=== PATIENT | female | born 1940 | race African-American/Black ===

== ENCOUNTER 2016-09-04 11:32 | Inpatient (IN) | payer OTHER ==
[~2016-09-04] VITALS: Ht 160 cm; Wt 68.0 kg
--- NOTE | ~2016-09-04 | EKG ---
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1940 Requested By: Miguelito Coleman Order Number: [id number] MD: Jong Grey Measurements Intervals [place] Rate: 87 P: 51 SC: 171 QRS: 50 QRSD: 89 T: 172 QT: 384 QTc: 462 Interpretive Statements Sinus rhythm Atrial premature complex Probable left atrial enlargement LVH with secondary repolarization abnormality vs lateral ischemia Baseline wander in lead(s) I,aVL Compared to ECG 09/09/2012 15:50:19 Atrial premature complex(es) now present Early repolarization now present T-wave abnormality no longer present Electronically Signed On 09-04-2016 14:13:59 CDT by Jong Grey [email or web address] <ELECTRONICALLY SIGNED> By: Jong Grey MD 09/04/16 1413 1204 1204 Jong Grey MD /EPI
--- NOTE | ~2016-09-04 | 2DMMODE ---
[facility] [address] [place] [address] 2 D/M-MODE ECHOCARDIOGRAM Name: YASMEEN REED Room #: 463-P [facility] IN .R.#: [id number] Admission: 09/04/16 Attend Phys: Freddie Germain Discharge: Date of : 36 Date of Service: 09/04/16 1548 Report #: [id number] THIS REPORT FOR: //name// APPROVED REPORT Study performed: 09/04/2016 14:38:46 EXAM: Comprehensive 2D, Doppler, and color-flow Echocardiogram Patient Location: ER Room #: 12 Status: routine Other Information Study Quality: Adequate Indications Hypertension, elevated troponin, TIA Echo Enhancing Agent Indication: Rule out Shunt Agent(s) / Amount(s) Used: Agitated Saline 6 cc 2D Dimensions RVDd: 38.56 mm LVEF(%): 60.72 (>50%) IVSd: 12.78 (7-11mm) LVOT Diam: 21.45 (18-24mm) LVDd: 36.94 mm PWd: 13.03 (7-11mm) Ascending Ao: 36.30 (22-36mm) LVDs: 25.19 (25-40mm) Aortic Root: 38.25 mm Hernandez's LVEF: 60.72 % Volumes Left Atrial Volume (Systole) Single Plane 4CH: 34.96 mL Single Plane 2CH: 37.24 mL LA ESV Index: 22.00 mL/m2 Aortic Valve AoV Peak Prince.: 1.40 m/s AO Peak Gr.: 7.85 mmHg LVOT Max P.77 mmHg LVOT Max V: 0.97 m/s [facility] Vmax: 2.50 cm2 Mitral Valve E/A Ratio: 0.5 MV Decel. Time: 258.91 ms [facility] [employer] [place] [address] 2 D/M-MODE ECHOCARDIOGRAM Name: YASMEEN REED Room #: 463-P [facility] IN M.R.#: [id number] Admission: 09/04/16 Attend Phys: Freddie Germain Discharge: Date of : 36 Date of Service: 09/04/16 1548 Report #: [id number] E Max Prince.: 0.48 m/s MV A Prince.: 0.92 m/s MV PHT: 75.08 ms IVRT: 138.41 ms Pulmonary Valve PV Peak Prince.: 0.89 m/s PV Peak Gr.: 3.14 mmHg Pulmonary Vein P Vein S: 0.40 m/s P Vein A: 0.36 m/s P Vein D: 0.34 m/s P Vein A Dur.: 101.5 msec P Vein S/D Ratio: 1.18 Tricuspid Valve TR Peak Prince.: 2.17 m/s RAP Estimate: 5.00 mmHg TR Peak Gr.: 18.79 mmHg PA Pressure: 24.00 mmHg Left Ventricle The left ventricle is normal size. There is normal LV segmental wall motion. Moderate concentric left ventricular hypertrophy. Left ventricular systolic function is normal. LVEF is 65%. Mild diastolic dysfunction is present (impaired relaxation pattern). Right Ventricle The right ventricle is normal size. The right ventricular systolic function is normal. Atria The left atrium size is normal. Injection of bubbles documented no interatrial shunt. The right atrium size is normal. Aortic Valve The aortic valve is normal in structure. Mild aortic regurgitation. There is no aortic valvular stenosis. Mitral Valve The mitral valve is normal in structure. Moderate mitral regurgitation. Eccentric jet noted. No evidence of mitral valve stenosis. Tricuspid Valve The tricuspid valve is normal in structure. There is trace tricuspid regurgitation. The right atrial pressure is estimated at 5 mmHg. Estimated PAP of 24mmHg. [address] [address] 2 D/M-MODE ECHOCARDIOGRAM Name: YASMEEN REED Room #: 463-[facility] IN .R.#: [id number] Admission: 09/04/16 Attend Phys: Freddie Germain Discharge: Date of : 36 Date of Service: 09/04/16 1548 Report #: [id number] Pulmonic Valve The pulmonary valve is normal in structure. Trace pulmonic regurgitation. Great Vessels Aortic root is mildly dilated. The ascending aorta is normal in size. IVC is normal in size and collapses >50% with inspiration. Pericardium There is no pericardial effusion. <Conclusion> The left ventricle is normal size. Moderate concentric left ventricular hypertrophy. Left ventricular systolic function is normal. Mild diastolic dysfunction is present (impaired relaxation pattern). The right ventricle is normal size. The left atrium size is normal. Injection of bubbles documented no interatrial shunt. Mild aortic regurgitation. Moderate mitral regurgitation. Eccentric jet noted. There is trace tricuspid regurgitation. The right atrial pressure is estimated at 5 mmHg. Estimated PAP of 24mmHg. There is no pericardial effusion. <ELECTRONICALLY SIGNED> By: Kamar Dorado MD 09/04/16 1548 1548 1548 Kamar Dorado MD /INF
[~2016-09-04 11:32] MED LIST: COMBIVENT RESPIM4 GM INH; HYDROCHLOROTH12.5 MG PO; K-DUR 20 MEQ T20 MEQ PO; NOHOMEMEDICATIONS; TYLENOL ALLERG1 EA11 PO
[2016-09-04 11:33] VITALS: BP 172/120
[2016-09-04 12:34] LABS: ABSOLUTE NEUTROPHILS 3.7 thou/uL (1.4-8.2); EOSINOPHILS 0.8 % (0.0-3.0); HEMATOCRIT 51.8 % (37.0-47.0); HEMOGLOBIN 16.9 gm/dL (12.0-15.0); LYMPHOCYTES 42.6 % (24.0-44.0); MCH 26.9 pg (26.0-34.0); MCHC 32.7 g/dL (28.0-37.0); MCV 82.2 fL (80.0-100.0); PLATELET COUNT 164 thou/uL (150-400); POLYS 46.6 % (36.0-66.0); RDW 15.6 % (10.5-14.5)
[2016-09-04 12:41] LABS: CALCIUM 9.6 mg/dL (8.5-10.1); CREATININE 0.9 mg/dL (0.6-1.0); POTASSIUM 3.8 mmol/L (3.5-5.1)
[2016-09-04 12:44] LABS: MANUAL DIFF NO
[2016-09-04 12:46] LABS: ALBUMIN 3.6 g/dL (3.4-5.0); TOTAL BILIRUBIN 0.6 mg/dL (<0.1-1.0); TOTAL PROTEIN 7.6 g/dL (6.4-8.2); TROPONIN-I 0.13 ng/mL (<0.04-0.07)
[2016-09-04 14:22] VITALS: BP 168/123; BP 182/112
[2016-09-04 14:52] LABS: CHOLESTEROL 181 mg/dL (<200); HDL CHOLESTEROL 47 mg/dL (>40); LDL CHOLESTEROL 123 mg/dL (<100); TC:HDL 3.9 Ratio (Not establshd); TRIGLYCERIDE 55 mg/dL (<150); VLDL 11 mg/dL (<40)
[2016-09-04 15:24] VITALS: BP 156/117
[2016-09-04 15:47] VITALS: BP 159/107
[2016-09-04 19:26] VITALS: BP 154/103
[2016-09-04 23:04] VITALS: BP 149/105
[2016-09-05 07:45] VITALS: BP 149/110
[2016-09-05 11:56] VITALS: BP 123/70
[2016-09-05 15:46] VITALS: BP 118/73
[2016-09-05 20:01] VITALS: BP 115/81
[2016-09-05 23:40] VITALS: BP 144/97
[2016-09-06 03:32] VITALS: BP 139/98
[2016-09-06 05:43] LABS: CALCIUM 9.5 mg/dL (8.5-10.1); CREATININE 0.9 mg/dL (0.6-1.0); POTASSIUM 3.8 mmol/L (3.5-5.1)
[2016-09-06 08:06] VITALS: BP 138/105
[2016-09-06 12:13] VITALS: BP 154/83
[2016-09-06] MEDS ORDERED: HYDROCHLOROTH12.5 M1 PO (13:20)
[2016-09-06] MEDS ORDERED: CARVEDILOL12.5 MG PO (13:20)
[2016-09-06] MEDS ORDERED: ASPIR 8181 MG PO (13:20)
[2016-09-06] MEDS ORDERED: COZAAR100 MG PO (13:20)
[2016-09-06 13:25] VITALS: BP 154/83
== END 2016-09-06 14:04 | disposition home or self-care (01) | DRG 305 ==
LOC: ER 11:32 → 4W 13:00 → EROBS 13:00 → 4W 15:29
PROVIDERS: Internal Medicine Cardiovascular Disease; Nurse Practitioner Gerontology; Physician Assistant
DX: I16.0 Hypertensive urgency (principal); E78.5 Hyperlipidemia, unspecified; F17.210 Nicotine dependence, cigarettes, uncomplicated; Z86.73 Personal history of transient ischemic attack (TIA), and cerebral infarction without residual deficits; Z90.710 Acquired absence of both cervix and uterus; Z71.6 Tobacco abuse counseling; Z91.14 Patient's other noncompliance with medication regimen
CPT/HCPCS: 10045

== ENCOUNTER → 2017-05-14 | Outpatient (CLI) | payer OTHER ==
[~2017-05-14] MED LIST changes: +ASPIR 8181 MG PO; +CARVEDILOL12.5 MG PO; +COZAAR100 MG PO; +HYDROCHLOROTH12.5 M1 PO
--- NOTE | ~2017-05-14 | 2DMMODE ---
[facility] [address] [place] [address] 2 D/M-MODE ECHOCARDIOGRAM Name: DEREKRADHARYAN [facility]: [id number] Admission: 05/14/17 Attend Phys: Kamar Dorado MD Discharge: Date of : 36 Date of Service: 05/14/17 1017 Report #: [id number] THIS REPORT FOR: //name// APPROVED REPORT Study performed: 05/14/2017 09:24:38 EXAM: Comprehensive 2D, Doppler, and color-flow Echocardiogram Patient Location: Out-Patient Room #: Echo lab Status: routine BSA: 1.73 HR: 80 bpm BP: 144/92 mmHg Other Information Study Quality: Adequate Indications Hypertension/HDD 2D Dimensions RVDd: 31.78 mm LVEF(%): 65.25 (>50%) IVSd: 13.74 (7-11mm) LVOT Diam: 19.57 (18-24mm) LVDd: 37.16 mm PWd: 13.74 (7-11mm) Ascending Ao: 37.42 (22-36mm) LVDs: 24.12 (25-40mm) Aortic Root: 32.49 mm IVC: 14.00 mm Hernandez's LVEF: 65.25 % Volumes Left Atrial Volume (Systole) Single Plane 4CH: 34.48 mL Single Plane 2CH: 44.27 mL LA ESV Index: 24.00 mL/m2 Aortic Valve AoV Peak Prince.: 1.50 m/s AO Peak Gr.: 8.95 mmHg LVOT Max P.61 mmHg LVOT Max V: 1.07 m/s [facility] Vmax: 2.16 cm2 Mitral Valve E/A Ratio: 0.6 MV Decel. Time: 196.86 ms MV E Max Prince.: 0.49 m/s [facility] [place] [employer] [place] [address] 2 D/M-MODE ECHOCARDIOGRAM Name: YASMEEN REED Room #: REG Shantanu#: [id number] Admission: 05/14/17 Attend Phys: Kamar Dorado MD Discharge: Date of : 38 Date of Service: 05/14/17 1017 Report #: [id number] MV A Prince.: 0.76 m/s MV PHT: 57.09 ms IVRT: 147.64 ms Pulmonary Valve PV Peak Prince.: 0.72 m/s PV Peak Gr.: 2.09 mmHg Pulmonary Vein P Vein S: 0.63 m/s P Vein A: 0.36 m/s P Vein D: 0.30 m/s P Vein A Dur.: 124.6 msec P Vein S/D Ratio: 2.10 Tricuspid Valve TR Peak Prince.: 3.09 m/s TR Peak Gr.: 38.25 mmHg PA Pressure: 43.00 mmHg Left Ventricle The left ventricle is normal size. Moderate concentric left ventricular hypertrophy. The left ventricular systolic function is normal. The left ventricular ejection fraction is within the normal range. LVEF is >70%. Grade I - abnormal relaxation pattern. Right Ventricle The right ventricle is normal size. The right ventricular systolic function is normal. Atria The left atrium size is normal. The right atrium size is normal. Aortic Valve The aortic valve is normal in structure. Mild aortic regurgitation. There is no aortic valvular stenosis. Mitral Valve The mitral valve is normal in structure. Trace mitral regurgitation. No evidence of mitral valve stenosis. Tricuspid Valve The tricuspid valve is normal in structure. There is trace tricuspid regurgitation. Estimated PAP 43 mmHg. There is moderate pulmonary hypertension. Pulmonic Valve The pulmonary valve is normal in structure. There is no pulmonic [address] [address] 2 D/M-MODE ECHOCARDIOGRAM Name: YASMEEN REED Room #: REG [facility]#: [id number] Admission: 05/14/17 Attend Phys: Kamar Dorado MD Discharge: Date of : 36 Date of Service: 05/14/17 1017 Report #: [id number] valvular regurgitation. Great Vessels The aortic root is normal in size. IVC is normal in size and collapses >50% with inspiration. Pericardium There is no pericardial effusion. <Conclusion> The left ventricle is normal size. Moderate concentric left ventricular hypertrophy. The left ventricular systolic function is normal. Grade I - abnormal relaxation pattern. The right ventricle is normal size. The left atrium size is normal. Mild aortic regurgitation. Trace mitral regurgitation. There is trace tricuspid regurgitation. Estimated PAP 43 mmHg. There is moderate pulmonary hypertension. <ELECTRONICALLY SIGNED> By: Kamar Dorado MD 05/14/17 1017 1017 1017 Kamar Dorado MD /INF
== END ==
LOC: CV 09:19
DX: I35.1 Nonrheumatic aortic (valve) insufficiency (principal); I47.1 Supraventricular tachycardia

== ENCOUNTER → 2017-05-31 | Outpatient (CLI) | payer OTHER | LOC: RAD 10:44 | DX: I51.7 Cardiomegaly (principal); I10 Essential (primary) hypertension ==

== ENCOUNTER 2017-06-16 02:04 | Inpatient (IN) | payer OTHER ==
[~2017-06-16] VITALS: Ht 160 cm; Wt 73.6 kg
[2017-06-16] VITALS (81 sets, daily range): BP systolic 71–165; BP diastolic 52–125
--- NOTE | ~2017-06-16 | HC ---
[facility] [place] [address] CONSULTATION Name: YASMEEN REED Room #: 245-P ADM IN M.R.#: [id number] Admission: 06/16/17 Attend Phys: Terry Latif MD Discharge: Date of : 38 Report #: [id number] THIS REPORT FOR: //name// CC: Terry Staples REFERRING PHYSICIAN: Dr. Latif. REASON FOR REFERRAL: Cardiac arrest. HISTORY OF PRESENT ILLNESS: The patient is a 77-year-old -Italian female who was brought to the Emergency Room following a cardiac arrest. Since admission, she has been placed on hypothermia protocol. Consultation was called in around 4:30 in the morning. According to the family and records, she was well on the day prior to admission. Last evening, she was awokened complaining of dyspnea. She vomited and then slumped over. Downtime was said to be about 5 minutes when EMS arrived. Spouse tried to provide CPR. When the EMS arrived, the patient was found to be in asystole. CPR was given for about 30 minutes with 5 rounds of epinephrine with subsequent return of pulse. I do not find what type of rhythm was noted. The patient does have a history of hypertension, TIA in the past, but no known history of heart disease. Her echocardiogram in the past has shown a normal ejection fraction, moderate mitral regurgitation. According to the patient's , the patient had a negative stress test in the past. Currently, she is on hypothermia protocol, she is sedated. PAST MEDICAL HISTORY: Notable for COPD, she is on 3 liters of O2 at home, hypertension, history of TIA in 2003, hyperlipidemia. PAST SURGICAL HISTORY: Include hysterectomy. ALLERGIES: None noted. MEDICATIONS: Include Coreg, Cozaar, aspirin, hydrochlorothiazide. Bronchodilators were not listed. FAMILY HISTORY: Unknown. SOCIAL HISTORY: The patient has smoked in the past, but quit some time ago. There is no history of alcohol use. She is . REVIEW OF SYSTEMS: Deferred as the patient is sedated. PHYSICAL EXAMINATION: [facility] [address] [place] [address] CONSULTATION Name: YASMEEN REED Room #: 245-P [facility] IN M.R.#: [id number] Admission: 06/16/17 Attend Phys: Terry Latif MD Discharge: Date of : 38 Report #: [id number] GENERAL: She is sedated, currently on hypothermia protocol. VITAL SIGNS: Currently, pulse is 90, sinus rhythm, respiratory rate is 25, blood pressure 110/84 mmHg on dopamine drip. Saturation 100%. HEENT: Normocephalic, atraumatic. NECK: Supple, without any lymphadenopathy or thyromegaly. CHEST: Breath sounds clear bilaterally. CARDIOVASCULAR: Heart sounds are distant. No obvious murmurs or gallop. Pulses are 2+/4+ bilaterally. ABDOMEN: Soft, no masses felt. GENITOURINARY: Deferred. RECTAL: Deferred. EXTREMITIES: There is no edema, cyanosis or clubbing. NEUROLOGIC: Deferred as the patient is sedated. According to nursing, she did have some decerebrate posturing when she arrived in the ICU. LABORATORY DATA: Chest x-ray is clear with cardiomegaly, ET tube is approximately 2.5 cm over the connor, no infiltrates seen. Sodium 144, potassium 5.5, chloride is 107, CO2 29, BUN is 37, creatinine is 2.0. WBC is 14,400, hemoglobin is 15.8, platelets mildly decreased. No evidence of bandemia. Arterial blood gas revealed pH 7.08, pCO2 87, pO2 460 on FiO2 100%. Repeat arterial blood gas revealed pH 7.37, pCO2 is 36, pO2 300, FiO2 100%. IMPRESSION: 1. Out of hospital cardiac arrest in this 77-year-old -Italian female. She was found to be asystolic. The patient was down more than 15 minutes. The patient has decerebrate posturing. Etiology suspect underlying cardiac disease. Agree with hypothermia protocol. 2. Probable severe anoxic brain injury. 3. Acute hypercapnic hypoxic respiratory failure due to above. Gas exchange has improved. 4. Renal insufficiency. Last creatinine in the hospital was 2017 was normal, presumed acute kidney injury due to cardiac arrest, leading to acute tubular necrosis. 5. History of hypertension. 6. History of medical noncompliance. 7. Chronic obstructive pulmonary disease by history, oxygen dependent, history of tobacco use. RECOMMENDATION: We will continue mechanical ventilation, wean O2 for saturation 90%. We will add bronchodilators. I do not think she needs corticosteroids at this time. We will need to monitor renal function closely given acute kidney injury. DVT and gastrointestinal prophylaxis will be initiated. We will need to assess neurologic status over the next 72 hours or so given probable severe anoxic brain injury. [facility] [address] [place] [address] CONSULTATION Name: YASMEEN REED Room #: 245-P ADM IN M.R.#: [id number] Admission: 06/16/17 Attend Phys: Terry Latif MD Discharge: Date of : 38 Report #: [id number] Thank you for this consultation. <ELECTRONICALLY SIGNED> By: Maulik Farah MD 06/16/17 1431 0852 1204 Maulik Farah MD /nt
--- NOTE | ~2017-06-16 | EKG ---
[place] [address] [place] [address] ELECTROCARDIOGRAM REPORT Name: REEDYASMEEN Room #: 245-P ADM IN M.R.#: [id number] Admission: 06/16/17 Attend Phys: Terry Latif MD Discharge: Date of : 38 Report #: [id number] THIS REPORT FOR: //name// [facility] ED Test Date: 2017-06-16 Test Time: 02:07:46 Pat Name: YASMEEN REED Department: Room: [facility] 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 : 1940 Requested By: Maulik Farah Order Number: [id number] MD: Jack Freire Measurements Intervals [place] Rate: 79 P: 10 MD: 180 QRS: 86 QRSD: 156 T: 247 QT: 412 QTc: 473 Interpretive Statements Sinus rhythm Right bundle branch block T-wave abnormality consider ischemia Compared to ECG 09/04/2016 12:04:34 Right bundle-branch block now present Electronically Signed On 06-16-2017 12:19:53 CDT by Jack Freire [email or web address] <ELECTRONICALLY SIGNED> By: Jack Freire MD, [facility] 06/16/17 1219 0207 Jack Freire MD, [facility] /EPI
--- NOTE | ~2017-06-16 | EKG ---
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1940 Requested By: Kaylee Caputo Order Number: [id number] MD: Jack Freire Measurements Intervals [place] Rate: 129 P: 130 LA: 284 QRS: 81 QRSD: 96 T: -74 QT: 304 QTc: 446 Interpretive Statements Sinus tachycardia Nonspecific ST and T wave abnormality LVH Compared to ECG 06/16/2017 02:27:36 Right bundle-branch block is no longer present nonspecific change in the ST and T-wave segments Electronically Signed On 06-17-2017 12:06:00 CDT by Jack Freire [email or web address] <ELECTRONICALLY SIGNED> By: Jack Freire MD, [facility] 06/17/17 1206 1241 1241 Jack Freire MD, [facility] /EPI
--- NOTE | ~2017-06-16 | DEA ---
[facility] [place] [address] SUMMARY Name: YASMEEN REED Room #: 459-P [facility] IN M.R.#: [id number] Admission: 06/16/17 Attend Phys: Dru Foy MD Discharge: 06/23/17 Date of : 38 Report #: [id number] THIS REPORT FOR: //name// CC: Terry Foy DATE OF SERVICE: 06/23/2017 SUMMARY Date and time of is 06/23/2017 at 9:45 a.m. ADMITTING DIAGNOSES: 1. Status post cardiac arrest with anoxic brain injury status post asystole, elevated troponin. 2. Acute respiratory failure. 3. Acute kidney injury. 4. Leukocytosis. HOSPITAL COURSE: The patient is an unfortunate 77-year-old female who presented to ER via EMS post-code. According to her spouse, she was acting final day, even had gone shopping. She woke up and was short of breath, felt like she was going to vomit and just "slumped over." She was down about 5 minutes prior to EMS arrival. The patient was in asystole with no CPR upon EMS arrival. The EMS performed chest compressions for about 15 minutes with 5 rounds of epinephrine prior to obtaining pulse. The patient was subsequently intubated and admitted to the hospital. MRI was obtained as well as EEG, which both indicated diffuse anoxic brain injury with abnormal signal within the bilateral basal ganglia as well as the bilateral cerebral hemispheres with area of high signal intensity. This was discussed at length with the family and very poor prognosis and they opted for extubation with palliative care only. The patient peacefully on the above date and time. Body was released with the family to go to the custodial. By: 1214 1856 Elie Veloz, DO /nt
--- NOTE | ~2017-06-16 | 2DMMODE ---
[address] [address] 2 D/M-MODE ECHOCARDIOGRAM Name: YASMEEN REED Room #: 245-P ADM IN M.R.#: [id number] Admission: 06/16/17 Attend Phys: Terry Latif, Discharge: Date of : 38 Date of Service: 06/16/17 1159 Report #: [id number] THIS REPORT FOR: //name// APPROVED REPORT Study performed: 06/16/2017 10:18:57 EXAM: Comprehensive 2D, Doppler, and color-flow Echocardiogram Patient Location: ICU Room #: [facility] Status: on-call BSA: 1.74 HR: 80 bpm BP: 127/95 mmHg Other Information Study Quality: Technically Limited Indications S^P Arrest Left Ventricle The left ventricle is normal size. There is normal left ventricular wall thickness. The left ventricular systolic function is normal. The left ventricular ejection fraction is within the normal range. LVEF is 55-60%. Right Ventricle The right ventricle is normal size. The right ventricular systolic function is normal. Atria The left atrium size is normal. The right atrium size is normal. Aortic Valve Aortic valve is grossly normal in structure. Mitral Valve The mitral valve is normal in structure. Tricuspid Valve Tricuspid valve is not well visualized. Pulmonic Valve [address] [place] [address] 2 D/M-MODE ECHOCARDIOGRAM Name: YASMEEN REED Room #: 245-P ADM IN M.R.#: [id number] Admission: 06/16/17 Attend Phys: Terry Latif, Discharge: Date of : 36 Date of Service: 06/16/17 1159 Report #: [id number] Pulmonic valve is not well visualized. Great Vessels Aortic root is not well visualized. IVC is not visualized. Pericardium There is no pericardial effusion. <Conclusion> Limited study The left ventricular systolic function is normal. LVEF is 55-60%. Aortic valve is grossly normal in structure. The mitral valve is normal in structure. There is no pericardial effusion. <ELECTRONICALLY SIGNED> By: Jack Freire MD, FACC 06/16/17 1159 1159 58 Jack Freire MD, FACC /INF
--- NOTE | ~2017-06-16 | HC ---
[facility] [place] [address] CONSULTATION Name: YASMEEN REED Room #: 245-P [facility] IN M.R.#: [id number] Admission: 06/16/17 Attend Phys: Dru Foy MD Discharge: Date of : 38 Report #: [id number] THIS REPORT FOR: //name// CC: Terry Staples DATE OF SERVICE: 06/16/2017 HISTORY OF PRESENT ILLNESS: The patient is a 77-year-old -[place]wegian woman with history of hypertension, dyslipidemia and remote TIA. She was seen by Dr. Dorado in 08/2016 with a tiny troponin elevation in the setting of hypertension. Medications were adjusted at that time. She now had a witnessed arrest. I have been asked to see her in this regard. Apparently, she was fine throughout the day yesterday and had gone shopping. She developed an episode of shortness of breath, nausea and thought that she was going to vomit. She then slumped over. Family called paramedics, who arrived, what was described, in less than 5 minutes. CPR was started; the initial rhythm was asystole. At least 15 minutes of CPR was given as well as 5 rounds of epinephrine. There was also a report of a possible seizure and transferred from her home to the Emergency Department. She is currently comatose, intubated and on hypothermia protocol. A very recent echocardiogram, which I have reviewed in 04/2017, demonstrated moderate LVH and normal left ventricular systolic function. Mild aortic insufficiency was noted with the pulmonary artery pressure of 43 mmHg. ALLERGIES: There are no known drug allergies. MEDICATIONS: Include carvedilol 12.5 mg twice daily, losartan 100 mg daily, aspirin and hydrochlorothiazide 12.5 mg daily. PAST MEDICAL HISTORY: Notable for hypertension, remote TIA, dyslipidemia, hysterectomy and COPD. SOCIAL HISTORY: She is a ckh-jfmi-vqt-day smoker. FAMILY HISTORY: Not obtainable. REVIEW OF SYSTEMS: Not obtainable. PHYSICAL EXAMINATION: GENERAL: Exam reveals a comatose woman, intubated and ventilated. She is cold to the touch. VITAL SIGNS: Blood pressure is 115/84, heart rate of 90 and regular and temperature is 32 degrees. Five feet 3 inches tall, 161 pounds. HEENT: There are neither xanthelasma, subcutaneous xanthomata, oral mucosal or digital cyanosis or kyphoscoliosis present. [facility] [address] [place] [address] CONSULTATION Name: YASMEEN REED Room #: 245-P [facility] IN .R.#: [id number] Admission: 06/16/17 Attend Phys: Dru Foy MD Discharge: Date of : 38 Report #: [id number] CHEST: Clear to auscultation and percussion. CARDIAC EXAMINATION: Reveals a regular rate and rhythm, with normal S1, S2. There is a soft systolic murmur at the base. ABDOMEN: Soft and nontender. EXTREMITIES: Without cyanosis, clubbing or edema. Radial pulses are 2+. NEUROLOGIC: She is in a drug-induced coma. LABORATORY DATA: Sodium 144, potassium 5.5 and creatinine 2.0. Creatinine last August was 0.9. Troponin 0.15. ProBNP of 485. White count 14,000, hemoglobin 15, hematocrit 52 and platelet count 128,000. Chest x-ray, cardiomegaly, normal vascularity. She did have a stress study in 08/2016, which was negative for ischemia. IMPRESSION: 1. Asystolic arrest with prolonged CPR. 2. Acute respiratory failure, possible aspiration. 3. Hypertension. 4. Acute kidney injury with hyperkalemia. 5. Possible seizure. 6. Remote transient ischemic attack. 7. History of pharmacologic noncompliance. 8. Presumed chronic obstructive pulmonary disease; tobacco dependency. RECOMMENDATIONS: 1. Hypothermia protocol, which has been initiated. 2. Abbreviated echocardiogram to reassess left ventricular systolic function. A small troponin elevation in this setting would be expected following prolonged CPR. Her EKG is unchanged and demonstrates no acute ST or T-wave changes. I do not suspect a primary myocardial ischemic event precipitating her arrest. Further thoughts will be forthcoming based on this evaluation. Thank you for asking me to participate in this woman's care. Critical care time from 07:05 to 08:02. <ELECTRONICALLY SIGNED> By: Jack Freire MD, FACC 06/20/17 0822 0759 1024 Jack Freire MD, FACC /nt
--- NOTE | ~2017-06-16 | HC ---
[facility] [place] [address] CONSULTATION Name: YASMEEN REED Room #: [facility] IN M.R.#: [id number] Admission: 06/16/17 Attend Phys: Dru Foy MD Discharge: Date of : 36 Report #: [id number] THIS REPORT FOR: //name// CC: Terry Foy DATE OF SERVICE: 06/19/2017 CHIEF COMPLAINT: Likely anoxic brain injury. HISTORY OF PRESENT ILLNESS: The patient is a 77-year-old female who unfortunately suffered asystole cardiac arrest outside the hospital setting. She had approximately 5 minutes without CPR, followed by 15 minutes with CPR prior to return to spontaneous circulation. The patient subsequently was intubated and has been on mechanical ventilation. Unfortunately, found to have likely anoxic brain injury with multiple EEGs performed. I do not have the results of today's EEG, but I do have results of most recent MRI showing diffuse edema likely consistent with a brain injury. The patient additionally has had acute renal failure and leukocytosis, although these have somewhat improved and the patient has seen Neurology as well and had evaluation again waiting on today's EEG. The patient has had no purposeful movement. She does have left corneal response and does over breathe ventilator, but otherwise again no purposeful movements at this time. PAST MEDICAL HISTORY: Hypertension, TIA, hyperlipidemia, and COPD, on chronic 3 liters nasal cannula. SURGICAL HISTORY: Hysterectomy. MEDICATIONS: Coreg, losartan, aspirin, hydrochlorothiazide. SOCIAL HISTORY: A son, Jabari. She does have significant other. She did smoke previously. ALLERGIES: No known drug allergies. CODE STATUS: Full code at this time. REVIEW OF SYSTEMS: Unable to obtain at this time due to medical condition. PHYSICAL EXAMINATION: VITAL SIGNS: Temperature 36.9, pulse 110, respirations 24, blood pressure 139/104, 100% on ventilation. GENERAL: The patient is not alert, unable to assess orientation. Poor attention level. [facility] [address] [place] [address] CONSULTATION Name: YASMEEN REED Room #: [address] [place] [address] [place] .R.#: [id number] Admission: 06/16/17 Attend Phys: Dru Foy MD Discharge: Date of : 36 Report #: [id number] HEENT: Nonpurposeful eye movement noted. CARDIOVASCULAR: Regular rate and rhythm, but tachycardic. RESPIRATORY: Mechanical lung sounds auscultated. ABDOMEN: Slight distention. Diminished bowel sounds noted. LABORATORY DATA: These included white blood cell 15.7, hemoglobin 14.3, platelets 127. Creatinine 0.9. ASSESSMENT AND PLAN: 1. Likely anoxic brain injury. Attempted to contact jono palmer. Left message to contact me with regards to possible family meeting. We will attempt to contact in the morning as well. 2. Acute hypoxic respiratory failure, again on ventilation. Appreciate pulmonary recommendations. I do agree the patient is a candidate for palliative withdrawal of ventilator and possibility of further palliative care at that time. 3. Status post cardiac arrest. Again results as above. Concern overall that patient has diffuse brain injury and is likely to have poor prognosis overall. We will further attempt to contact family. Thank you very much for the consultation. We will continue to follow. By: [id number] Jhoan Adame DO /nt
--- NOTE | ~2017-06-16 | EKG ---
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 [employer] Manager: [id number] : 1940 Requested By: Kaylee Caputo Order Number: [id number] MD: Jack Freire Measurements Intervals Dorothy Rate: 80 P: 83 [place]: 188 QRS: 83 QRSD: 147 T: -73 QT: 443 QTc: 512 Interpretive Statements Sinus rhythm Probable left atrial enlargement Right bundle branch block Anteroseptal infarct, age indeterminate T-wave abnormality, consider lateral ischemia Compared to ECG 09/04/2016 12:04:34 No significant change was found Electronically Signed On 06-16-2017 12:20:34 CDT by Jack Freire [email or web address] <ELECTRONICALLY SIGNED> By: Jack Freire MD, [facility] 06/16/17 1220 6 Jack Freire MD, [facility] /EPI
[2017-06-16 02:45] LABS: ABSOLUTE NEUTROPHILS 5.6 thou/uL (1.4-8.2); BASOPHILS 0.6 % (0.0-2.0); EOSINOPHILS 1.2 % (0.0-3.0); HEMATOCRIT 52.1 % (37.0-47.0); HEMOGLOBIN 15.8 gm/dL (12.0-15.0); LYMPHOCYTES 52.5 % (24.0-44.0); MCHC 30.4 g/dL (28.0-37.0); MCV 85.6 fL (80.0-100.0); MONOCYTES 6.4 % (1.0-8.0); PLATELET COUNT 128 thou/uL (150-400); POLYS 39.3 % (36.0-66.0); RBC 6.09 mil/uL (4.20-5.00); RDW 17.2 % (10.5-14.5); WBC 14.4 thou/uL (4.0-11.0)
[2017-06-16 02:53] LABS: CALCIUM 9.1 mg/dL (8.5-10.1); POTASSIUM 5.5 mmol/L (3.5-5.1)
[2017-06-16 02:55] LABS: APTT 32.1 Seconds (24.5-32.8); INR 1.1; PROTIME 10.9 Seconds (9.3-11.4)
[2017-06-16 03:02] LABS: TROPONIN-I 0.15 ng/mL (<0.06)
[2017-06-16 03:02] LABS: URINE BILIRUBIN NEGATIVE (Negative); URINE BLOOD 2+ (Negative); URINE CLARITY CLEAR; URINE COLOR YELLOW; URINE GLUCOSE-RANDOM* TRACE (Negative); URINE KETONES NEGATIVE (Negative); URINE LEUKOCYTES NEGATIVE (Negative); URINE NITRITE NEGATIVE (Negative); URINE PROTEIN (DIPSTICK) 2+ (Negative); URINE SPECIFIC GRAVITY >= 1.030 (1.005-1.035); URINE UROBILINOGEN 0.2 E.U./dl (0.2-1.0)
[2017-06-16 03:24] LABS: BE(vivo) -6.7 mmol/L (-2 to +3); HCO3 25.7 mmol/L (22.0-26.0); sO2 99.7 % (92.0-98.0)
[2017-06-16 03:25] LABS: PCO2 87.2 mmHg (35.0-45.0); pH 7.088 (7.360-7.450)
[2017-06-16 03:26] LABS: HYALINE CASTS 0-3 Few /LPF (None Seen); SQUAMOUS 4-10 Moderate /LPF (0-3)
[2017-06-16 03:27] LABS: AMORPHOUS PHOSPHATES Few /LPF (None Seen); BACTERIA 1-9 Few /HPF (None Seen); CRYSTALS None Seen /LPF (None Seen); URINE WBC 6-15 Few /HPF (0-5)
[2017-06-16 05:30] LABS: BE(vivo) -3.7 mmol/L (-2 to +3); HCO3 20.8 mmol/L (22.0-26.0); PCO2 36.3 mmHg (35.0-45.0); pH 7.375 (7.360-7.450); sO2 99.7 % (92.0-98.0)
[2017-06-16 08:59] LABS: WBC 19.8 thou/uL (4.0-11.0)
[2017-06-16 09:01] LABS: ABSOLUTE NEUTROPHILS 18.2 thou/uL (1.4-8.2); BASOPHILS 0.3 % (0.0-2.0); EOSINOPHILS 0.1 % (0.0-3.0); HEMOGLOBIN 17.3 gm/dL (12.0-15.0); LYMPHOCYTES 2.7 % (24.0-44.0); MCH 26.7 pg (26.0-34.0); MCHC 32.7 g/dL (28.0-37.0); MCV 81.7 fL (80.0-100.0); MONOCYTES 5.2 % (1.0-8.0); PLATELET COUNT 128 thou/uL (150-400); POLYS 91.7 % (36.0-66.0); RBC 6.48 mil/uL (4.20-5.00); RDW 16.5 % (10.5-14.5)
[2017-06-16 09:17] LABS: CALCIUM 8.9 mg/dL (8.5-10.1); CREATININE 1.3 mg/dL (0.6-1.0); TROPONIN-I 0.22 ng/mL (<0.06)
[2017-06-16 09:19] LABS: POTASSIUM 3.7 mmol/L (3.5-5.1)
[2017-06-16 13:54] LABS: BASOPHILS 0.1 % (0.0-2.0); HEMATOCRIT 50.9 % (37.0-47.0); HEMOGLOBIN 16.3 gm/dL (12.0-15.0); LYMPHOCYTES 3.7 % (24.0-44.0); MCH 26.2 pg (26.0-34.0); MCHC 32.1 g/dL (28.0-37.0); MCV 81.8 fL (80.0-100.0); MONOCYTES 3.5 % (1.0-8.0); PLATELET COUNT 123 thou/uL (150-400); POLYS 92.7 % (36.0-66.0); RBC 6.22 mil/uL (4.20-5.00); RDW 16.5 % (10.5-14.5); WBC 16.2 thou/uL (4.0-11.0)
[2017-06-16 14:09] LABS: GLYCOHEMOGLOBIN (HGB A1C) 6.7 % (4.8-5.6)
[2017-06-16 14:14] LABS: CALCIUM 8.2 mg/dL (8.5-10.1); CREATININE 1.3 mg/dL (0.6-1.0); MAGNESIUM 1.6 mg/dL (1.8-2.4); TROPONIN-I 0.29 ng/mL (<0.06)
[2017-06-16 14:20] LABS: POTASSIUM 2.6 mmol/L (3.5-5.1)
[2017-06-16 18:31] LABS: BASOPHILS 0.4 % (0.0-2.0); HEMATOCRIT 50.2 % (37.0-47.0); HEMOGLOBIN 16.1 gm/dL (12.0-15.0); LYMPHOCYTES 6.8 % (24.0-44.0); MCH 26.1 pg (26.0-34.0); MCHC 32.2 g/dL (28.0-37.0); MCV 81.2 fL (80.0-100.0); MONOCYTES 4.1 % (1.0-8.0); PLATELET COUNT 122 thou/uL (150-400); POLYS 88.7 % (36.0-66.0); RBC 6.18 mil/uL (4.20-5.00); RDW 16.3 % (10.5-14.5); WBC 14.6 thou/uL (4.0-11.0)
[2017-06-16 18:49] LABS: CALCIUM 7.9 mg/dL (8.5-10.1); CREATININE 1.1 mg/dL (0.6-1.0); MAGNESIUM 2.5 mg/dL (1.8-2.4); POTASSIUM 3.2 mmol/L (3.5-5.1); TROPONIN-I 0.32 ng/mL (<0.06)
[2017-06-17] VITALS (75 sets, daily range): BP systolic 90–145; BP diastolic 63–95
[2017-06-17 03:30] LABS: ABSOLUTE NEUTROPHILS 14.8 thou/uL (1.4-8.2); BASOPHILS 0.3 % (0.0-2.0); EOSINOPHILS 0.3 % (0.0-3.0); HEMATOCRIT 49.8 % (37.0-47.0); HEMOGLOBIN 16.3 gm/dL (12.0-15.0); LYMPHOCYTES 5.7 % (24.0-44.0); MCHC 32.7 g/dL (28.0-37.0); MCV 79.5 fL (80.0-100.0); MONOCYTES 3.9 % (1.0-8.0); PLATELET COUNT 124 thou/uL (150-400); POLYS 89.8 % (36.0-66.0); RBC 6.27 mil/uL (4.20-5.00); WBC 16.5 thou/uL (4.0-11.0)
[2017-06-17 03:43] LABS: CALCIUM 8.1 mg/dL (8.5-10.1); CREATININE 0.8 mg/dL (0.6-1.0); MAGNESIUM 2.3 mg/dL (1.8-2.4); POTASSIUM 3.2 mmol/L (3.5-5.1); TROPONIN-I 0.43 ng/mL (<0.06)
[2017-06-17 05:02] LABS: BE(vivo) -1.2 mmol/L (-2 to +3); HCO3 19.5 mmol/L (22.0-26.0); pH 7.514 (7.360-7.450); sO2 96.6 % (92.0-98.0)
[2017-06-17 05:03] LABS: PCO2 24.8 mmHg (35.0-45.0)
[2017-06-17 07:41] LABS: BE(vivo) -2.9 mmol/L (-2 to +3); HCO3 21.1 mmol/L (22.0-26.0); PCO2 34.8 mmHg (35.0-45.0); PO2 82.1 mmHg (80.0-100.0); sO2 96.2 % (92.0-98.0)
[2017-06-18] VITALS (35 sets, daily range): BP systolic 89–133; BP diastolic 60–99
[2017-06-18 05:08] LABS: BE(vivo) -2.4 mmol/L (-2 to +3); HCO3 21.7 mmol/L (22.0-26.0); PCO2 35.9 mmHg (35.0-45.0); PO2 82.5 mmHg (80.0-100.0); sO2 96.2 % (92.0-98.0)
[2017-06-18 05:43] LABS: HEMATOCRIT 44.7 % (37.0-47.0); HEMOGLOBIN 14.6 gm/dL (12.0-15.0); MCHC 32.7 g/dL (28.0-37.0); MCV 79.3 fL (80.0-100.0); RBC 5.63 mil/uL (4.20-5.00); WBC 16.9 thou/uL (4.0-11.0)
[2017-06-18 05:53] LABS: CALCIUM 7.4 mg/dL (8.5-10.1); POTASSIUM 3.6 mmol/L (3.5-5.1)
[2017-06-19] VITALS (23 sets, daily range): BP systolic 106–139; BP diastolic 74–106
[2017-06-19 05:18] LABS: BE(vivo) -1.6 mmol/L (-2 to +3); HCO3 22.8 mmol/L (22.0-26.0); PCO2 37.8 mmHg (35.0-45.0); PO2 102.1 mmHg (80.0-100.0); pH 7.399 (7.360-7.450); sO2 97.7 % (92.0-98.0)
[2017-06-19 06:02] LABS: ABSOLUTE NEUTROPHILS 12.5 thou/uL (1.4-8.2); BASOPHILS 0.5 % (0.0-2.0); HEMOGLOBIN 14.3 gm/dL (12.0-15.0); LYMPHOCYTES 13.2 % (24.0-44.0); MCH 25.6 pg (26.0-34.0); MCHC 32.6 g/dL (28.0-37.0); MCV 78.5 fL (80.0-100.0); MONOCYTES 6.7 % (1.0-8.0); PLATELET COUNT 127 thou/uL (150-400); POLYS 79.6 % (36.0-66.0); RDW 16.2 % (10.5-14.5); WBC 15.7 thou/uL (4.0-11.0)
[2017-06-19 06:08] LABS: CREATININE 0.9 mg/dL (0.6-1.0); POTASSIUM 3.4 mmol/L (3.5-5.1)
[2017-06-20] VITALS (30 sets, daily range): BP systolic 107–180; BP diastolic 65–149
[2017-06-20 05:09] LABS: BE(vivo) 2.1 mmol/L (-2 to +3); HCO3 25.9 mmol/L (22.0-26.0); PCO2 37.9 mmHg (35.0-45.0); PO2 84.2 mmHg (80.0-100.0); pH 7.452 (7.360-7.450); sO2 96.8 % (92.0-98.0)
[2017-06-20 05:46] LABS: HEMATOCRIT 43.5 % (37.0-47.0); HEMOGLOBIN 14.5 gm/dL (12.0-15.0); MCH 26.2 pg (26.0-34.0); MCHC 33.4 g/dL (28.0-37.0); MCV 78.2 fL (80.0-100.0); RBC 5.56 mil/uL (4.20-5.00); RDW 16.1 % (10.5-14.5); WBC 12.4 thou/uL (4.0-11.0)
[2017-06-20 06:03] LABS: CALCIUM 8.3 mg/dL (8.5-10.1); CREATININE 0.8 mg/dL (0.6-1.0); POTASSIUM 3.6 mmol/L (3.5-5.1)
[2017-06-20 11:21] LABS: BE(vivo) -0.1 mmol/L (-2 to +3); HCO3 24.6 mmol/L (22.0-26.0); PCO2 40.1 mmHg (35.0-45.0); PO2 78.5 mmHg (80.0-100.0); pH 7.405 (7.360-7.450); sO2 95.7 % (92.0-98.0)
[2017-06-21] VITALS (25 sets, daily range): BP systolic 102–151; BP diastolic 68–108
[2017-06-21 04:53] LABS: HEMOGLOBIN 14.2 gm/dL (12.0-15.0); MCH 25.8 pg (26.0-34.0); MCV 78.3 fL (80.0-100.0); RBC 5.49 mil/uL (4.20-5.00); WBC 10.6 thou/uL (4.0-11.0)
[2017-06-21 04:57] LABS: CALCIUM 8.4 mg/dL (8.5-10.1); CREATININE 0.8 mg/dL (0.6-1.0); POTASSIUM 3.6 mmol/L (3.5-5.1)
[2017-06-22] VITALS (10 sets, daily range): BP systolic 106–151; BP diastolic 76–111
== END 2017-06-23 11:58 | DRG 870 ==
LOC: ER 02:04 → EROBS 03:10 → ICU 03:10 → 4W 06-22 17:35
PROVIDERS: Emergency Medicine; Hospitalist; Internal Medicine; Internal Medicine Pulmonary Disease; Nurse Practitioner Acute Care
PROC: 0BH17EZ Insertion of Endotracheal Airway into Trachea, Via Natural or Artificial Opening (ICD-10-PCS; principal; 2017-06-16)
PROC: 5A1955Z Respiratory Ventilation, Greater than 96 Consecutive Hours (ICD-10-PCS; principal; 2017-06-16)
PROC: 02HV33Z Insertion of Infusion Device into Superior Vena Cava, Percutaneous Approach (ICD-10-PCS; principal; 2017-06-16)
DX: A41.9 Sepsis, unspecified organism (principal); J96.21 Acute and chronic respiratory failure with hypoxia; J96.22 Acute and chronic respiratory failure with hypercapnia; E43 Unspecified severe protein-calorie malnutrition; N17.9 Acute kidney failure, unspecified; G93.1 Anoxic brain damage, not elsewhere classified; I46.9 Cardiac arrest, cause unspecified; T68.XXXA Hypothermia, initial encounter; I10 Essential (primary) hypertension; E78.5 Hyperlipidemia, unspecified; E87.5 Hyperkalemia; I95.9 Hypotension, unspecified; J44.9 Chronic obstructive pulmonary disease, unspecified; F17.210 Nicotine dependence, cigarettes, uncomplicated; R73.9 Hyperglycemia, unspecified; G25.3 Myoclonus; G93.89 Other specified disorders of brain; Z86.73 Personal history of transient ischemic attack (TIA), and cerebral infarction without residual deficits; Z90.710 Acquired absence of both cervix and uterus; Z91.14 Patient's other noncompliance with medication regimen; Z68.28 Body mass index [BMI] 28.0-28.9, adult; Z99.81 Dependence on supplemental oxygen; Z66 Do not resuscitate; Z51.5 Encounter for palliative care
CPT/HCPCS: 10047; 10078; 27000